=== PATIENT | female | born 1975 | race Caucasian/White ===

== ENCOUNTER 2016-07-30 10:42 | Day surgery (SDC) | payer BC ==
[~2016-07-30] VITALS: Ht 160 cm; Wt 65.0 kg
[2016-07-30] VITALS (15 sets, daily range): BP systolic 87–121; BP diastolic 50–66; PULSE 66–88; RESP 13–19; Ht 160 cm; Wt 65.0 kg
[~2016-07-30 10:42] MED LIST: GLYCOPYRROLATE 0.4 MG INJ ONE; LACTATED RINGER'S 1,000 ML IV ONE; NEOSTIGMINE 3 MG/3 ML SYRINGE ONE
[2016-07-30 11:51] LABS: BASOPHILS % 0.5 % (0.0-2.0); EOSINOPHILS % 0.9 % (0.0-7.0); HEMATOCRIT 34.2 % (37.0-47.0); HEMOGLOBIN 11.2 g/dl (12.0-16.0); LYMPHOCYTES # 1.8 10^3/ul (0.8-2.9); LYMPHOCYTES % 34.1 % (15.0-51.0); MEAN CORPUSCULAR HEMOGLOBIN 28.4 pg (29.0-33.0); MEAN CORPUSCULAR HGB CONC 32.9 g/dl (32.0-37.0); MEAN CORPUSCULAR VOLUME 86.4 fl (82.0-101.0); MEAN PLATELET VOLUME 10.3 fl (7.4-10.4); MONOCYTE # 0.3 10^3/ul (0.3-0.9); MONOCYTES % 5.8 % (0.0-11.0); NEUTROPHIL # 3.2 10^3/ul (1.6-7.5); NEUTROPHILS % 58.7 % (39.0-77.0); PLATELET COUNT 253 10^3/UL (140-440); RED BLOOD COUNT 3.96 10^6/ul (4.20-5.40); RED CELL DISTRIBUTION WIDTH 19.2 % (11.5-14.5); UNCORRECTED WBC 5.4 10^3/ul (4.8-10.8); WHITE BLOOD COUNT 5.4 10^3/ul (4.8-10.8)
[2016-07-30 12:04] LABS: CONDITION 1; SUSPECT 1
[2016-07-30 12:05] LABS: LH ANALYZER COMMENTS 1
[2016-07-30] MEDS ORDERED: PROPOFOL 20 ML ONE (13:40)
[2016-07-30] MEDS ORDERED: ROCURONIUM 50 MG INJ ONE (13:40)
[2016-07-30] MEDS ORDERED: FENTAnyl 50 MCG/ML VIAL ONE (13:41)
[2016-07-30] MEDS ORDERED: MIDAZOLAM 1 MG/ML 2 ML INJ ONE (13:41)
[2016-07-30] MEDS ORDERED: METOCLOPRAMIDE 10 MG INJ ONE (13:53)
[2016-07-30] MEDS ORDERED: ONDANSETRON 4 MG INJ ONE (13:53)
[2016-07-30] MEDS ORDERED: DEXAMETHASONE 4 MG/ML 1 ML INJ ONE (13:54)
[2016-07-30] MEDS ORDERED: KETOROLAC 30 MG INJ ONE (13:54)
[2016-07-30] MEDS ORDERED: HYDROmorphONE (0.2 MG/ML) 10ML SYG IV PRN ×5 (14:30)
[2016-07-30] MEDS ORDERED: ONDANSETRON 4 MG INJ IV PRN ×2 (14:30)
[2016-07-30] MEDS ORDERED: DIPHENHYDRAMINE 50 MG INJ IV PRN ×2 (14:30)
[2016-07-30] MEDS ORDERED: MEPERIDINE 25 MG INJ IV PRN (14:30)
[2016-07-30] MEDS ORDERED: morphine (1 MG/ML) 10ML SYRINGE IV PRN ×6 (14:30)
[2016-07-30] MEDS ORDERED: HYDROmorphONE 2 MG/ML SYG ONE (15:02)
[2016-07-30] MEDS: HYDROmorphONE (0.2 MG/ML) 10ML SYG IV PRN ×3 (15:07→15:24)
--- NOTE | 2016-07-31 11:11 | OPR ---
DATE OF OPERATION: 07/30/2016 PREOPERATIVE DIAGNOSIS: A 40-year-old 8, para 2, multiparous, desires permanent surgical st erilization. POSTOPERATIVE DIAGNOSIS: A 40-year-old 8, para 2, multiparous, desires permanent surgical s terilization. OPERATION PERFORMED: Laparoscopic bilateral tubal fulguration. SURGEON: Vidya Lyles MD. RUBBER MOLD MAKER: KAVITA CHI MD FINDINGS: A 5 x 5 cm posterior intramural fibroid noted with multiple sites of endometriosis on the serosa of the uterus, otherwise normal ovaries and tubes. BLOOD LOSS: 20 mL. SPECIMEN: None. COMPLICATIONS OF PROCEDURE: None. TYPE OF ANESTHESIA: General. DESCRIPTION OF PROCEDURE: After explaining the risks, benefits and alternatives, the patient consen t signed in chart, the patient was taken to the operating room where general anesthesia was obtained without difficulty. The patient was then examined under anesthesia. She was then placed in a dors al lithotomy position and prepared and draped in a sterile fashion. A heavy weighted speculum was t hen placed in the patient's vagina and the anterior lip of the cervix was grasped with a single toot h tenaculum. A HUMI uterine manipulator was then advanced into the uterus to provide a means to man ipulate the uterus. The speculum was then removed from the vagina. Attention was then turned to th e patient's abdomen where a 5 mm skin incision was made in the umbilical fold. The Veress needle wa s carefully introduced into the peritoneal cavity at a 45 degree angle while tenting the abdominal w all. Intraperitoneal placement was confirmed by use of water-filled syringe and drop in intra-abdom inal pressure with insufflation of CO2 gas. The trocar and sleeve were then advanced without diffic ulty into the abdomen where intra-abdominal placement was confirmed by laparoscope. Pneumoperitoneu m was obtained with 4 liters of CO2 gas and a 5 mm trocar and sleeve were then advanced without diff iculty into the abdomen where intra-abdominal placement was confirmed by the laparoscope. A second incision was made 2 cm above the symphysis pubis in the midline. The second trocar and sleeve were then advanced under direct visualization. A survey of the patient's pelvis and abdomen revealed, as noted above, fulguration of the right fallopian tube were performed with good blanching. There was no bleeding from the mesosalpinx. Instruments were then removed from the patient's abdomen and the incision was repaired with 3-0 Vicryl. The HUMI was then removed from the vagina with no bleeding f rom the cervix. The patient tolerated the procedure well. Sponge, lap and needle counts were corre ct x2. The patient was taken to the recovery room in stable condition. Dictated By: VIDYA KEENAN/DENIS Conf#: [id number] DID#: [id number]
== END 2016-07-30 17:35 | disposition home or self-care (01) ==
LOC: SDS 10:42
PROVIDERS: ATTEND Obstetrics & Gynecology
DX: Z30.2 Encounter for sterilization (principal)
CPT/HCPCS: 58670; 84703; 85025; 86850; 86900; 86901; J1100; J1170; J1885; J2175; J2250; J2405; J2710; J2765; J3010; Z7512; Z7610